=== PATIENT | male | born 2000 | race Hispanic/Latino ===

== ENCOUNTER → 2020-07-16 | Outpatient (CLI) | payer BC | LOC: MRI 09:59 | PROVIDERS: ATTEND Orthopaedic Surgery Sports Medicine | DX: M25.562 Pain in left knee (principal) ==

== ENCOUNTER → 2020-08-26 | Outpatient (CLI) | payer BC ==
[~2020-08-26] MED LIST: ETODOLAC400 M1 PO; OMEPRAZOLE40 MG PO
== END ==
LOC: US 11:29
PROVIDERS: ATTEND Internal Medicine Gastroenterology
DX: R10.84 Generalized abdominal pain (principal); K21.9 Gastro-esophageal reflux disease without esophagitis
CPT/HCPCS: 76700

== ENCOUNTER → 2020-09-02 | Day surgery (SDC) | payer BC ==
[~2020-09-02] MED LIST changes: +FENTANYL CITRATE/PF 100MCG/2 ML INJ ONE; +LIDOCAINE HCL 2% LOCAL INJ 5 ML SDV VIAL INJ ONE; +METOCLOPRAMIDE HCL 10 MG/2ML VIAL ONE; +POVIDONE IODINE 0.05% 0.05 % ML PO ONE; +PROPOFOL IV EMULSION 10 MG/ML 20 ML VIAL ONE
[2020-09-02 08:44] VITALS: BP 112/71
== END | disposition home or self-care (01) ==
LOC: OR 06:29 → MERGE 08:30 → EDBD 08:30
PROVIDERS: ATTEND Internal Medicine Gastroenterology
DX: K21.9 Gastro-esophageal reflux disease without esophagitis (principal); K29.70 Gastritis, unspecified, without bleeding; K20.90 Esophagitis, unspecified without bleeding; K59.09 Other constipation; K62.89 Other specified diseases of anus and rectum; R63.0 Anorexia; Z88.8 Allergy status to other drugs, medicaments and biological substances; Z01.812 Encounter for preprocedural laboratory examination; Z20.822 Contact with and (suspected) exposure to COVID-19; Z68.25 Body mass index [BMI] 25.0-25.9, adult
CPT/HCPCS: 43239; C9113; J2001; J2704; J2765; J3010; U0002

== ENCOUNTER → 2022-04-11 | Outpatient (CLI) | payer BC ==
[~2022-04-11] MED LIST changes: -FENTANYL CITRATE/PF 100MCG/2 ML INJ ONE; -LIDOCAINE HCL 2% LOCAL INJ 5 ML SDV VIAL INJ ONE; -METOCLOPRAMIDE HCL 10 MG/2ML VIAL ONE; -POVIDONE IODINE 0.05% 0.05 % ML PO ONE; -PROPOFOL IV EMULSION 10 MG/ML 20 ML VIAL ONE
== END ==
LOC: RAD 14:05
PROVIDERS: ATTEND Internal Medicine
DX: M54.50 Low back pain, unspecified (principal)
CPT/HCPCS: 72100

== ENCOUNTER 2022-08-17 10:13 | Emergency (ER) | payer BC ==
[~2022-08-17] VITALS: Ht 172.7 cm; Wt 73.5 kg
[2022-08-17 10:23] VITALS: O2SAT 100
[2022-08-17] MEDS ORDERED: ULTRAM 50MG50 MG PO (12:47)
== END 2022-08-17 12:52 | disposition home or self-care (01) ==
LOC: FSED 10:42
DX: N50.811 Right testicular pain (principal); N43.40 Spermatocele of epididymis, unspecified
CPT/HCPCS: 76870; 99284